=== PATIENT | male | born 1970 | race Hispanic/Latino ===

== ENCOUNTER → 2024-04-09 | Day surgery (SDC) | payer OTHER ==
[~2024-04-09] MED LIST: FENTANYL CITRATE/PF 100MCG/2 ML INJ ONE; LIDOCAINE HCL 2% LOCAL INJ 5 ML SDV VIAL INJ ONE; OMEPRAZOLE40 MG PO; PROPOFOL IV EMULSION 10 MG/ML 20 ML VIAL ONE
[2024-04-09] MEDS: LACTATED RINGER'S 1,000 ML ONE (07:07)
[2024-04-09 08:57] VITALS: TEMP 97
[2024-04-09 09:25] VITALS: BP 107/75; PULSE 52; RESP 13; O2SAT 97
== END | disposition home or self-care (01) ==
LOC: OR 06:24
PROVIDERS: ATTEND Internal Medicine Gastroenterology
DX: K21.9 Gastro-esophageal reflux disease without esophagitis (principal); K29.50 Unspecified chronic gastritis without bleeding; K20.90 Esophagitis, unspecified without bleeding; Z86.0100 Personal history of colon polyps, unspecified; Z71.3 Dietary counseling and surveillance; Z68.27 Body mass index [BMI] 27.0-27.9, adult
CPT/HCPCS: 43239; 93005; J2003; J2470; J2704; J3010; J7121